=== PATIENT | female | born 1955 | race Caucasian/White ===

== ENCOUNTER → 2018-10-13 | Outpatient (CLI) | payer MEDICARE, BC ==
[~2018-10-13] MED LIST: ACIPHEX20 MG PO; ASPIRIN 32325 MG/TAB PO; BENADRYL25 M1 PO; BENICAR 20MG TA20 MG PO; CALCIUM 1200 W/1 SGL PO; CLONAZEPAM1 MG PO; LEVOTHYROXIN0.112 MG PO; METHADONE5 MG PO; MULTIPLE VITAMI1 TA1 PO; OMEGA 31000 MG PO; PREMARIN 0.60.625 M1 PO; PRILOSEC 20MG20 MG PO; PROAIR IH; REFRESH TEARS 330 ML OP; SINGULAIR10 MG PO; SLOW-MAG 6464 MG/TAB PO; VITAMIN B COMPL1 TA1 PO; VITAMIN C BUFF500 MG PO; ZANTAC 150MG T150 MG PO; ZOFRAN4 M1 PO; ZOLOFT100 MG PO; ZYRTEC10 MG PO
== END ==
LOC: COL.RAD 10:37
DX: R05 Cough (principal)

== ENCOUNTER → 2018-10-22 | Outpatient (CLI) | payer MEDICARE, BC | LOC: COL.LAB 08:52 | DX: J32.9 Chronic sinusitis, unspecified (principal) ==

== ENCOUNTER → 2019-11-02 | Outpatient (CLI) | payer MEDICARE, BC | LOC: COL.RAD 10:55 | DX: M48.061 Spinal stenosis, lumbar region without neurogenic claudication (principal); M43.17 Spondylolisthesis, lumbosacral region; M43.16 Spondylolisthesis, lumbar region; M51.24 Other intervertebral disc displacement, thoracic region; Z98.1 Arthrodesis status; M54.16 Radiculopathy, lumbar region | CPT/HCPCS: A9585 ==

== ENCOUNTER → 2020-03-02 | Outpatient (CLI) | payer MEDICARE, BC ==
[2020-03-02] VITALS (7 sets, daily range): BP systolic 101–142; BP diastolic 58–92; PULSE 78–117
[~2020-03-02] MED LIST changes: +ALLEGRA 60MG TA60 MG PO; +ASPIRIN 81M81 MG/TA2 PO; +CALCIUM 600MG+D1 TAB PO; +CRESTOR40 MG PO; +FISH OIL1000 MG PO; +GLUCOPHAGE500 MG/TAB PO; +KLONOPIN WAFERS1 MG PO; -OMEGA 31000 MG PO; +PREDNISONE20 MG PO; +SINGULAIR 110 MG/TAB PO; +SYNTHROID0.1 MG/TAB PO; +UBIQUINOL100 MG PO; +VALIUM 2MG T2 MG/TAB PO; +VASCEPA1 GM PO; +ZOLOFT 100MG100 MG PO
--- NOTE | 2020-03-02 11:45 | NUR ---
Patient escorted out to private vehicle by wheelchair. Discharge instructions provided.
== END ==
LOC: COL.RAD 09:00
DX: M48.062 Spinal stenosis, lumbar region with neurogenic claudication (principal); Z98.1 Arthrodesis status
CPT/HCPCS: J2250; J2704

== ENCOUNTER → 2021-02-27 | Outpatient (CLI) | payer MEDICARE, BC | LOC: COL.LAB 15:11 | DX: G06.2 Extradural and subdural abscess, unspecified (principal) ==

== ENCOUNTER → 2021-03-23 | Outpatient (CLI) | payer MEDICARE, BC ==
[2021-03-23 17:22] LABS: BASO # 0.1 K/mm3 (0.0-0.2); BASO % 0.8 % (0.0-2.0); EOS # 0.4 K/mm3 (0.0-0.7); EOS % 3.6 % (0.0-4.0); GRAN # 6.1 K/mm3 (1.4-6.5); HEMATOCRIT 40.4 % (37.0-47.0); HEMOGLOBIN 13.2 g/dl (12.5-16.0); LYMPH # 2.5 K/mm3 (1.2-3.4); LYMPH % 25.6 % (20.0-51.0); MEAN CELL VOLUME 83 fl (80.0-100.0); MEAN CORPUSCULAR HEMOGLOBIN 27 pg (27-31); MEAN CORPUSCULAR HGB CONC 33 g/dl (33.0-37.0); MEAN PLATELET VOLUME 8.9 fl (7.4-10.4); MONO # 0.6 K/mm3 (0.1-0.6); MONO % 6.5 % (1.7-9.3); PLATELET COUNT 289 K/mm3 (130-400); RED BLOOD COUNT 4.85 M/mm3 (4.10-5.30); REDCELL DISTRIBUTION WIDTH-CV 14.2 % (11.5-14.5)
[2021-03-23 18:06] LABS: ERYTHROCYTE SEDIMENTATION RATE 12 mm/hr (0-30)
== END ==
LOC: COL.LAB 16:44
DX: G06.1 Intraspinal abscess and granuloma (principal); M54.50 Low back pain, unspecified

== ENCOUNTER → 2021-03-28 | Outpatient (CLI) | payer MEDICARE, BC | LOC: COL.RAD 12:14 | DX: M51.25 Other intervertebral disc displacement, thoracolumbar region (principal); Z98.890 Other specified postprocedural states | CPT/HCPCS: A9585 ==

== ENCOUNTER → 2021-06-07 | Outpatient (CLI) | payer MEDICARE, BC | LOC: COL.LAB 12:31 | DX: G06.2 Extradural and subdural abscess, unspecified (principal) ==

== ENCOUNTER → 2021-10-27 | Outpatient (CLI) | payer MEDICARE, BC ==
[2021-10-27 09:50] LABS: BASO # 0.1 K/mm3 (0.0-0.2); BASO % 1.2 % (0.0-2.0); EOS # 0.4 K/mm3 (0.0-0.7); EOS % 5.1 % (0.0-4.0); GRAN # 4.8 K/mm3 (1.4-6.5); GRAN % 56.4 % (42.2-75.2); HEMATOCRIT 40.3 % (37.0-47.0); HEMOGLOBIN 13.8 g/dl (12.5-16.0); LYMPH # 2.7 K/mm3 (1.2-3.4); LYMPH % 31.4 % (20.0-51.0); MEAN CELL VOLUME 89 fl (80.0-100.0); MEAN CORPUSCULAR HEMOGLOBIN 30 pg (27-31); MEAN CORPUSCULAR HGB CONC 34 g/dl (33.0-37.0); MEAN PLATELET VOLUME 9.1 fl (7.4-10.4); MONO # 0.5 K/mm3 (0.1-0.6); MONO % 5.7 % (1.7-9.3); PLATELET COUNT 288 K/mm3 (130-400); RED BLOOD COUNT 4.55 M/mm3 (4.10-5.30); REDCELL DISTRIBUTION WIDTH-CV 14.7 % (11.5-14.5)
[2021-10-27 10:36] LABS: ERYTHROCYTE SEDIMENTATION RATE 29 mm/hr (0-30)
== END ==
LOC: COL.LAB 08:55
PROVIDERS: Family Medicine
DX: M46.46 Discitis, unspecified, lumbar region (principal)

== ENCOUNTER 2023-02-14 14:07 | Outpatient (RCR) | payer MEDICARE, BC ==
[~2023-02-14 14:07] MED LIST changes: +FLEXERIL 1010 MG/TAB PO; +HCTZ12.5TAB PO; +IRON TABLETS325 MG PO; +KLONOPIN 1MG1 MG PO; +LIPITOR20 MG PO; +NEURONTIN300 MG/CAP PO; +RESTASIS 60VL OP; +SYNTHROID0.088 MG/T PO; +VITAMIN C500 MG PO; +VITAMIN D31000 I1 PO
== END 2023-02-17 | disposition home or self-care (01) ==
LOC: WSPT
DX: M53.3 Sacrococcygeal disorders, not elsewhere classified (principal); M54.17 Radiculopathy, lumbosacral region; M96.1 Postlaminectomy syndrome, not elsewhere classified; M79.7 Fibromyalgia; Z98.1 Arthrodesis status; Z87.39 Personal history of other diseases of the musculoskeletal system and connective tissue

== ENCOUNTER 2023-03-18 11:15 | Outpatient (RCR) | payer MEDICARE, BC | END 2023-03-20 | disposition home or self-care (01) | LOC: WSPT | DX: M53.3 Sacrococcygeal disorders, not elsewhere classified (principal); M96.1 Postlaminectomy syndrome, not elsewhere classified; M79.7 Fibromyalgia; M54.17 Radiculopathy, lumbosacral region; Z98.1 Arthrodesis status; Z87.39 Personal history of other diseases of the musculoskeletal system and connective tissue ==

== ENCOUNTER 2023-03-29 11:15 | Outpatient (RCR) | payer MEDICARE, BC | END 2023-04-18 | disposition home or self-care (01) | LOC: WSPT | DX: M53.3 Sacrococcygeal disorders, not elsewhere classified (principal); M54.17 Radiculopathy, lumbosacral region; M96.1 Postlaminectomy syndrome, not elsewhere classified; M79.7 Fibromyalgia; Z98.1 Arthrodesis status; Z87.39 Personal history of other diseases of the musculoskeletal system and connective tissue ==